=== PATIENT | male | born 1995 | race Asian ===

== ENCOUNTER 2018-11-23 12:15 | Observation (INO) ==
[2018-11-23] MEDS ORDERED: SODIUM CHLORIDE 0.9% 1000ML 1,000 ML IV SCH (12:45)
[2018-11-23 12:51] LABS: Basophils # (auto) 0.03 K/uL (0-0.2); Basophils % (auto) 0.5 %; Eosinophils # (auto) 0.05 K/uL (0-0.5); Eosinophils % (auto) 0.8 %; Hematocrit (blood only) 44.2 % (42-52); Hemoglobin 15.3 g/dL (14.0-18.0); Immature Granulocytes # (auto) 0.02 K/uL (0.00-0.02); Immature Granulocytes % (auto) 0.3 %; Lymphocytes # (auto) 2.36 K/uL (1.2-3.4); Lymphocytes % (auto) 35.6 %; Mean Corpuscular Hgb Conc 34.6 g/dL (32-36); Mean Corpuscular Volume 91.7 fL (80-100); Mean Platelet Volume 10.8 fL (7.4-10.4); Monocytes # (auto) 0.43 K/uL (0.11-0.59); Monocytes % (auto) 6.5 %; Neutrophils # (auto) 3.73 K/uL (1.4-6.5); Neutrophils % (auto) 56.3 %; Platelet Count 207 K/uL (130-400); RDW Coefficient of Variation 13.3 % (11.5-14.5); RDW Standard Deviation 44.1 fL (36.4-46.3); Red Blood Count 4.82 M/uL (4.7-6.1); White Blood Count 6.62 K/uL (4.8-10.8)
[2018-11-23 13:01] LABS: Albumin Level 4.3 gm/dl (3.4-5.0); BUN Creatinine Ratio 13.9 (10-20); Calcium 9.1 mg/dl (8.5-10.1); Creatinine Clr Calc Pharmacy 93.2 ml/min; Est GFR (African American) 78.7; Est GFR (Non-African American) 67.9; Magnesium 2.1 mg/dl (1.8-2.4)
[2018-11-23 13:04] LABS: Albumin Globulin Ratio 1.2 (0.9-2); Bilirubin,Total 0.5 mg/dl (0.2-1); Globulin 3.5 gm/dl (2.5-4.0); Total Protein 7.8 gm/dl (6.4-8.2)
[2018-11-23 13:18] LABS: Appearance Urine Clear (Clear); Bacteria Urine Automated Negative (Negative); Bilirubin Urine Negative (Negative); Blood Urine Negative (Negative); Color Urine Yellow; Epithelial Cell Urine Auto 20-30 /lpf (0-5); Glucose Urine UA Negative (Negative); Ketones Urine Negative (Negative); Leukocyte Esterase Urine Negative (Negative); Nitrite Urine Negative (Negative); Protein Urine 1+ (Negative); RBC Urine Automated 0-4 /hpf (0-4); Specific Gravity Urine 1.022 (1.000-1.030); Urobilinogen Urine Negative (Negative)
--- NOTE | 2018-11-23 13:22 | CT Scan Report ---
CT SCAN OF THE BRAIN WITHOUT IV CONTRAST CLINICAL HISTORY: Seizure. COMPARISON STUDY: No priors. TECHNIQUE: Unenhanced axial CT scan of the brain is performed from the vertex to the skull base. A d ose lowering technique was utilized adhering to the principles of ALARA. CT DOSE: 614.27 mGy.cm FINDINGS: Brain parenchyma: The brain parenchyma is normal in appearance. There is no hemorrhage, mass effect, or evidence of acute territorial ischemia by CT criteria. Walters-white matter differentiation is preser idris. No extra-axial fluid collection is seen. Ventricles, sulci, cisterns: Normal in configuration. Intracranial vasculature: The visualized intracranial vasculature at the skull base is normal in appe arance. Calvarium: Unremarkable. Sinuses and mastoids: The visualized paranasal sinuses are clear. The mastoid air cells are well pneu matized. Orbits: The bony orbits are grossly intact. IMPRESSION: No acute intracranial abnormality. Electronically signed by: Tomy Wheeler M.D. 11/23/2018 1:21 PM
[2018-11-23 13:30] LABS: Sperm Urine Present (None Prsent)
[2018-11-23 13:31] LABS: Mucus Urine Present (None Prsent)
[2018-11-23 13:46] LABS: Amphetamines+Metham, Urine Neg (Neg); Barbiturates, Urine Neg (Neg); Benzodiazepine, Urine Neg (Neg); Cocaine, Urine Neg (Neg); MDMA (Ecstacy), Urine Neg (Neg); Methadone, Urine Neg (Neg); Opiate, Urine Neg (Neg); Phencyclidine, Urine Neg (Neg)
[2018-11-23] MEDS ORDERED: levETIRAcetam 500 MG TAB PO ONE (14:31)
[2018-11-23] MEDS ORDERED: LORazepam 2 MG/4 ML VIAL ONE (14:34)
[2018-11-23] MEDS ORDERED: LORazepam 2 MG/4 ML VIAL IV STA (14:37)
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
[2018-11-23] MEDS ORDERED: ACETAMINOPHEN 325 MG TAB PO PRN (16:24)
[2018-11-23] MEDS ORDERED: ONDANSETRON INJ 2 MG/ML 2 ML VIAL IV PRN (16:24)
[2018-11-23] MEDS ORDERED: LORazepam 1 MG/2 ML VIAL IV PRN (16:24)
--- NOTE | 2018-11-23 17:07 | Emergency Department Note ---
Entered by Virgie Garduno acting as a scribe for History of Present Illness General Chief complaint: Seizure Stated complaint: seizure Time Seen by Provider: 11/23/18 12:27 Source: patient and friends History of Present Illness Onset (ago): hour(s) (this morning) Location: head, upper extremity and lower extremity Pain Consistency: + other (4 minutes ) Quality: + other (seizure) Associated symptoms: + other (Positive confusion, dribbling spit from his mouth. Negative vomiting. ) The patient is a 23 year old male who presents to the Emergency Room with complaints of a seizure beginning this morning. The patient is accompanied by his friend who states that this morning, they were going to get groceries when the patient began seizing. His friend notes the patient's seizure lasted about 4 minutes and he had spit dribbling from his mouth but he did not vomit. His friend states the patient was confused after seizing and when EMS arrived, the patient was feeling slightly better. The patient states his last seizure was 8 years ago and he had multiple at that time. He states he was on a seizure medication around that time but his father who is a physician discontinued it. Pt denies drinking alcohol, smoking marijuana, smoking cigarettes, smoking and e cigarette. The patient reports he has been drinking 2 Monster energy drinks for the past week and worked out yesterday. Home Medications Home Medications Medication Instructions Recorded Confirmed Type No Known Home Medications 11/23/18 11/23/18 History Allergies Allergy/AdvReac Type Severity Reaction Status Date / Time No Known Allergies Allergy Unverified 11/23/18 13:25 Past Med/Surg History Medical History Seizure (Acute) Surgical History No significant past surgical history Family History Other Family history non-contributory Social History Preferred Language: British Communication Ability: Effective Research Intern Required: No Beliefs That Will Affect Care: None Current Living Situation: Other Current Living Situation Comment: Apartment with friend current occupational status: student Other Information That Helps Us Care for You: No Feels Safe at Home: Yes Safety Concerns: Feels Safe At This Time Smoking Status: Never smoker Do You Dip or Chew Tobacco: No Second Hand Exposure: No Tobacco Cessation Education Requested by Patient: No Hx Alcohol Use: No Hx Substance Use: No Review of Systems See HPI for pertinent positives & negatives. and A total of 10 systems reviewed and were otherwise negative Physical Exam Vital Signs Vital Signs - 24 hr 11/23/18 12:11 11/23/18 12:22 11/23/18 12:26 Temperature 37.1 C Temperature Source Oral Sepsis Recent Fever Within 48 Hours No Sepsis New/Unexplained Change in Mental Status No Sepsis Action Taken by Nursing No Action Required Pulse Rate 77 69 68 Pulse Rate [Finger] Pulse Rate from SpO2 Sensor 70 69 Respiratory Rate 18 20 12 Respiratory Effort / Characteristics Non-Labored Spontaneous Respiratory Depth Normal Respiratory Pattern Regular Blood Pressure 116/52 L 116/52 L Blood Pressure [Right Arm] Blood Pressure Mean 73 73 Blood Pressure Mean [Right Arm] Blood Pressure Position Sitting Blood Pressure Position [Right Arm] Pulse Oximetry 97 96 96 Oxygen Delivery Method Room Air 11/23/18 12:30 11/23/18 12:40 11/23/18 12:50 Temperature Temperature Source Sepsis Recent Fever Within 48 Hours Sepsis New/Unexplained Change in Mental Status Sepsis Action Taken by Nursing Pulse Rate 71 73 66 Pulse Rate [Finger] Pulse Rate from SpO2 Sensor 70 75 67 Respiratory Rate 16 9 L 14 Respiratory Effort / Characteristics Respiratory Depth Respiratory Pattern Blood Pressure Blood Pressure [Right Arm] Blood Pressure Mean Blood Pressure Mean [Right Arm] Blood Pressure Position Blood Pressure Position [Right Arm] Pulse Oximetry 96 97 97 Oxygen Delivery Method 11/23/18 13:00 11/23/18 13:19 11/23/18 13:20 Temperature Temperature Source Sepsis Recent Fever Within 48 Hours Sepsis New/Unexplained Change in Mental Status Sepsis Action Taken by Nursing Pulse Rate 87 Pulse Rate [Finger] Pulse Rate from SpO2 Sensor 82 64 65 Respiratory Rate 24 Respiratory Effort / Characteristics Respiratory Depth Respiratory Pattern Blood Pressure Blood Pressure [Right Arm] Blood Pressure Mean Blood Pressure Mean [Right Arm] Blood Pressure Position Blood Pressure Position [Right Arm] Pulse Oximetry 97 98 98 Oxygen Delivery Method 11/23/18 13:30 11/23/18 13:40 11/23/18 13:50 Temperature Temperature Source Sepsis Recent Fever Within 48 Hours Sepsis New/Unexplained Change in Mental Status Sepsis Action Taken by Nursing Pulse Rate 64 64 62 Pulse Rate [Finger] Pulse Rate from SpO2 Sensor 63 65 62 Respiratory Rate 21 19 20 Respiratory Effort / Characteristics Respiratory Depth Respiratory Pattern Blood Pressure Blood Pressure [Right Arm] Blood Pressure Mean Blood Pressure Mean [Right Arm] Blood Pressure Position Blood Pressure Position [Right Arm] Pulse Oximetry 99 98 97 Oxygen Delivery Method 11/23/18 14:00 11/23/18 14:10 11/23/18 14:20 Temperature Temperature Source Sepsis Recent Fever Within 48 Hours Sepsis New/Unexplained Change in Mental Status Sepsis Action Taken by Nursing Pulse Rate 58 L 52 L 52 L Pulse Rate [Finger] Pulse Rate from SpO2 Sensor 58 L 51 L 51 L Respiratory Rate 15 18 17 Respiratory Effort / Characteristics Respiratory Depth Respiratory Pattern Blood Pressure Blood Pressure [Right Arm] Blood Pressure Mean Blood Pressure Mean [Right Arm] Blood Pressure Position Blood Pressure Position [Right Arm] Pulse Oximetry 97 96 96 Oxygen Delivery Method 11/23/18 14:30 11/23/18 14:40 11/23/18 14:50 Temperature Temperature Source Sepsis Recent Fever Within 48 Hours Sepsis New/Unexplained Change in Mental Status Sepsis Action Taken by Nursing Pulse Rate 51 L 98 H 95 H Pulse Rate [Finger] Pulse Rate from SpO2 Sensor 51 L 94 H Respiratory Rate 10 L 18 18 Respiratory Effort / Characteristics Respiratory Depth Respiratory Pattern Blood Pressure Blood Pressure [Right Arm] Blood Pressure Mean Blood Pressure Mean [Right Arm] Blood Pressure Position Blood Pressure Position [Right Arm] Pulse Oximetry 96 97 Oxygen Delivery Method 11/23/18 14:51 11/23/18 14:52 11/23/18 15:00 Temperature Temperature Source Sepsis Recent Fever Within 48 Hours Sepsis New/Unexplained Change in Mental Status Sepsis Action Taken by Nursing Pulse Rate 92 H 94 H 87 Pulse Rate [Finger] Pulse Rate from SpO2 Sensor 92 H 93 H 87 Respiratory Rate 20 15 17 Respiratory Effort / Characteristics Respiratory Depth Respiratory Pattern Blood Pressure 115/53 L Blood Pressure [Right Arm] Blood Pressure Mean 73 Blood Pressure Mean [Right Arm] Blood Pressure Position Blood Pressure Position [Right Arm] Pulse Oximetry 97 97 98 Oxygen Delivery Method 11/23/18 15:10 11/23/18 15:20 11/23/18 15:30 Temperature Temperature Source Sepsis Recent Fever Within 48 Hours Sepsis New/Unexplained Change in Mental Status Sepsis Action Taken by Nursing Pulse Rate 81 80 75 Pulse Rate [Finger] Pulse Rate from SpO2 Sensor 81 77 74 Respiratory Rate 10 L 10 L 4 L Respiratory Effort / Characteristics Respiratory Depth Respiratory Pattern Blood Pressure Blood Pressure [Right Arm] Blood Pressure Mean Blood Pressure Mean [Right Arm] Blood Pressure Position Blood Pressure Position [Right Arm] Pulse Oximetry 98 98 Oxygen Delivery Method 11/23/18 15:31 11/23/18 15:40 11/23/18 15:50 Temperature Temperature Source Sepsis Recent Fever Within 48 Hours Sepsis New/Unexplained Change in Mental Status Sepsis Action Taken by Nursing Pulse Rate 73 72 71 Pulse Rate [Finger] Pulse Rate from SpO2 Sensor 74 71 72 Respiratory Rate 8 L 20 19 Respiratory Effort / Characteristics Respiratory Depth Respiratory Pattern Blood Pressure 91/39 L Blood Pressure [Right Arm] Blood Pressure Mean 56 Blood Pressure Mean [Right Arm] Blood Pressure Position Blood Pressure Position [Right Arm] Pulse Oximetry 99 100 100 Oxygen Delivery Method 11/23/18 16:22 Temperature 36.1 C L Temperature Source Axillary Sepsis Recent Fever Within 48 Hours Sepsis New/Unexplained Change in Mental Status Sepsis Action Taken by Nursing Pulse Rate Pulse Rate [Finger] 86 Pulse Rate from SpO2 Sensor Respiratory Rate 20 Respiratory Effort / Characteristics Respiratory Depth Respiratory Pattern Blood Pressure Blood Pressure [Right Arm] 95/81 L Blood Pressure Mean Blood Pressure Mean [Right Arm] 85 Blood Pressure Position Blood Pressure Position [Right Arm] Lying Pulse Oximetry 98 Oxygen Delivery Method Vital signs reviewed. General: Well-appearing male, in no significant distress. HEENT: No scleral icterus, PERRLA, neck supple. Atraumatic. Cardiovascular: Regular rate and rhythm, no extra sounds. Pulmonary: Clear to auscultation bilaterally, normal work of breathing. Abdomen: Soft, nontender, nondistended, positive bowel sounds. Musculoskeletal: Atraumatic, no peripheral edema. Neurologic: Patient awake alert and oriented x 3, full strength in all 4 extremities. Cranial nerves 2 through 12 grossly intact. Skin: Warm, dry, no rash Course 1230: Past medical records reviewed. The patient was evaluated in room C11. A complete history and physical examination was performed. 1429: I discussed the patient's case with Dr. Vaughn, Neurology. She recommends Kepra. 1435: I discussed the patient's case with Dr. Loredo, [facility] Hospitalist. He will evaluate the patient for further management. Administered Medications Levetiracetam 500 mg/ Dextrose 105 mls @ 420 mls/hr IV Q12H DENNIS Stop: 12/23/18 20:59 Last Admin: 11/23/18 20:46 Dose: 420 mls/hr Documented by: [id number] Sodium Chloride (Nss 1000ml) 1,000 mls @ 125 mls/hr IV .Q8H DENNIS Stop: 12/23/18 16:44 Last Admin: 11/23/18 17:32 Dose: 125 mls/hr Documented by: [id number] Discontinued Medications Sodium Chloride (Nss 1000ml) 1,000 mls @ 999 mls/hr IV .Q1H1M DENNIS Stop: 11/23/18 13:45 Last Infusion: 11/23/18 14:49 Dose: 0 mls/hr Documented by: [id number] Admin: 11/23/18 13:06 Dose: 999 mls/hr Documented by: [id number] Levetiracetam 1,000 mg/ (Dextrose) 110 mls @ 440 mls/hr IV NOW STA Stop: 11/23/18 14:49 Last Infusion: 11/23/18 15:06 Dose: 0 mls/hr Documented by: [id number] Admin: 11/23/18 14:48 Dose: 440 mls/hr Documented by: [id number] Lorazepam (Ativan) 2 mg in 4 mls @ 4 mls/min IV NOW STA Stop: 11/23/18 14:38 Last Admin: 11/23/18 14:47 Dose: 4 mls/min Documented by: [id number] Levetiracetam 1,000 mg/ (Dextrose) 110 mls @ 440 mls/hr IV NOW STA Stop: 11/23/18 14:50 Last Admin: 11/23/18 14:49 Dose: Not Given Documented by: [id number] Levetiracetam (Keppra) 500 mg PO ONE ONE Stop: 11/23/18 14:32 Last Admin: 11/23/18 16:27 Dose: Not Given Documented by: [id number] Lorazepam (Ativan) Confirm Administered Dose 2 mg .ROUTE .STK-MED ONE Stop: 11/23/18 14:35 Last Admin: 11/23/18 14:48 Dose: Not Given Documented by: [id number] Medical Decision Making Differential Diagnosis Differential diagnosis includes etiologies such as infection, hypoglycemia, electrolyte abnormalities, cardiac sources, intracerebral event, trauma, toxicologic, neurologic, as well as others were entertained. Medical Records Attestation: I reviewed the patient's medical records. Home Medications Current Medication List: was personally reviewed by me Laboratory Data Attestation: I reviewed the patient's lab results. Result diagrams: 11/23/18 12:20 11/23/18 12:20 Lab Results 11/23/18 11/23/18 11/23/18 Range/Units 12:20 12:20 12:56 WBC 6.62 (4.8-10.8) K/uL RBC 4.82 (4.7-6.1) M/uL Hgb 15.3 (14.0-18.0) g/dL Hct 44.2 (42-52) % MCV 91.7 (80-100) fL MCH 31.7 (25-34) pg MCHC 34.6 (32-36) g/dL RDW Std Deviation 44.1 (36.4-46.3) fL RDW Coeff of Opal 13.3 (11.5-14.5) % Plt Count 207 (130-400) K/uL MPV 10.8 H (7.4-10.4) fL Immature Gran % (Auto) 0.3 % Neut % (Auto) 56.3 % Lymph % (Auto) 35.6 % Shasta % (Auto) 6.5 % Eos % (Auto) 0.8 % Baso % (Auto) 0.5 % Immature Gran # (Auto) 0.02 (0.00-0.02) K/uL Neut # (Auto) 3.73 (1.4-6.5) K/uL Lymph # (Auto) 2.36 (1.2-3.4) K/uL Shasta # (Auto) 0.43 (0.11-0.59) K/uL Eos # (Auto) 0.05 (0-0.5) K/uL Baso # (Auto) 0.03 (0-0.2) K/uL Sodium 138 (136-145) mmol/L Potassium 4.0 (3.5-5.1) mmol/L Chloride 103 (98-107) mmol/L Carbon Dioxide 21 (21-32) mmol/L Anion Gap 14.0 H (3-11) BUN 20 H (7-18) mg/dl Creatinine 1.45 H (0.6-1.4) mg/dl Est Cr Clr Drug Dosing 93.2 ml/min Est GFR ( Amer) 78.7 Est GFR (Non-Af Amer) 67.9 BUN/Creatinine Ratio 13.9 (10-20) Glucose 80 (70-99) mg/dl POC Glucose (70-99) Lactate 2.7 H* (0.4-2.0) mmol/L Calcium 9.1 (8.5-10.1) mg/dl Phosphorus 4.0 (2.5-4.9) mg/dl Magnesium 2.1 (1.8-2.4) mg/dl Total Bilirubin 0.5 (0.2-1) mg/dl AST 28 (15-37) U/L ALT 38 (12-78) U/L Alkaline Phosphatase 87 (45-117) U/L Total Protein 7.8 (6.4-8.2) gm/dl Albumin 4.3 (3.4-5.0) gm/dl Globulin 3.5 (2.5-4.0) gm/dl Albumin/Globulin Ratio 1.2 (0.9-2) Urine Color Urine Appearance (Clear) Urine pH (4.5-7.5) Ur Specific Ulman (1.000-1.030) Urine Protein (Negative) Urine Glucose (UA) (Negative) Urine Ketones (Negative) Urine Blood (Negative) Urine Nitrite (Negative) Urine Bilirubin (Negative) Urine Urobilinogen (Negative) Ur Leukocyte Esterase (Negative) Urine WBC (Auto) (0-5) /hpf Urine RBC (Auto) (0-4) /hpf U Hyaline Cast (Auto) (0-5) /lpf U Epithel Cells (Auto) (0-5) /lpf Urine Bacteria (Auto) (Negative) Urine Mucus (None Prsent) Urine Sperm (None Prsent) Urine Opiates Screen (Neg) Ur Methadone, Qual (Neg) Urine Barbiturates (Neg) Ur Phencyclidine (PCP) (Neg) U Amphetamin/Meth Scrn (Neg) MDMA (Ecstasy) Screen (Neg) U Benzodiazepines Scrn (Neg) Ur Cocaine Metabolite (Neg) U Marijuana (THC) Screen (Neg) 11/23/18 11/23/18 11/23/18 Range/Units 12:57 13:00 13:00 WBC (4.8-10.8) K/uL RBC (4.7-6.1) M/uL Hgb (14.0-18.0) g/dL Hct (42-52) % MCV (80-100) fL MCH (25-34) pg MCHC (32-36) g/dL RDW Std Deviation (36.4-46.3) fL RDW Coeff of Opal (11.5-14.5) % Plt Count (130-400) K/uL MPV (7.4-10.4) fL Immature Gran % (Auto) % Neut % (Auto) % Lymph % (Auto) % Shasta % (Auto) % Eos % (Auto) % Baso % (Auto) % Immature Gran # (Auto) (0.00-0.02) K/uL Neut # (Auto) (1.4-6.5) K/uL Lymph # (Auto) (1.2-3.4) K/uL Shasta # (Auto) (0.11-0.59) K/uL Eos # (Auto) (0-0.5) K/uL Baso # (Auto) (0-0.2) K/uL Sodium (136-145) mmol/L Potassium (3.5-5.1) mmol/L Chloride (98-107) mmol/L Carbon Dioxide (21-32) mmol/L Anion Gap (3-11) BUN (7-18) mg/dl Creatinine (0.6-1.4) mg/dl Est Cr Clr Drug Dosing ml/min Est GFR ( Amer) Est GFR (Non-Af Amer) BUN/Creatinine Ratio (10-20) Glucose (70-99) mg/dl POC Glucose 91 (70-99) Lactate (0.4-2.0) mmol/L Calcium (8.5-10.1) mg/dl Phosphorus (2.5-4.9) mg/dl Magnesium (1.8-2.4) mg/dl Total Bilirubin (0.2-1) mg/dl AST (15-37) U/L ALT (12-78) U/L Alkaline Phosphatase (45-117) U/L Total Protein (6.4-8.2) gm/dl Albumin (3.4-5.0) gm/dl Globulin (2.5-4.0) gm/dl Albumin/Globulin Ratio (0.9-2) Urine Color Yellow Urine Appearance Clear (Clear) Urine pH 6.0 (4.5-7.5) Ur Specific Ulman 1.022 (1.000-1.030) Urine Protein 1+ H (Negative) Urine Glucose (UA) Negative (Negative) Urine Ketones Negative (Negative) Urine Blood Negative (Negative) Urine Nitrite Negative (Negative) Urine Bilirubin Negative (Negative) Urine Urobilinogen Negative (Negative) Ur Leukocyte Esterase Negative (Negative) Urine WBC (Auto) 5-10 H (0-5) /hpf Urine RBC (Auto) 0-4 (0-4) /hpf U Hyaline Cast (Auto) 1-5 (0-5) /lpf U Epithel Cells (Auto) 20-30 H (0-5) /lpf Urine Bacteria (Auto) Negative (Negative) Urine Mucus Present A (None Prsent) Urine Sperm Present A (None Prsent) Urine Opiates Screen Neg (Neg) Ur Methadone, Qual Neg (Neg) Urine Barbiturates Neg (Neg) Ur Phencyclidine (PCP) Neg (Neg) U Amphetamin/Meth Scrn Neg (Neg) MDMA (Ecstasy) Screen Neg (Neg) U Benzodiazepines Scrn Neg (Neg) Ur Cocaine Metabolite Neg (Neg) U Marijuana (THC) Screen Neg (Neg) Imaging Data Radiologist's Impression: Radiology results as stated below per my review and the radiologist's interpretation: CT SCAN OF THE BRAIN WITHOUT IV CONTRAST CLINICAL HISTORY: Seizure. COMPARISON STUDY: No priors. TECHNIQUE: Unenhanced axial CT scan of the brain is performed from the vertex to the skull base. A dose lowering technique was utilized adhering to the principles of ALARA. CT DOSE: 614.27 mGy.cm FINDINGS: Brain parenchyma: The brain parenchyma is normal in appearance. There is no hemorrhage, mass effect, or evidence of acute territorial ischemia by CT criteria. Walters-white matter differentiation is preserved. No extra-axial fluid collection is seen. Ventricles, sulci, cisterns: Normal in configuration. Intracranial vasculature: The visualized intracranial vasculature at the skull base is normal in appearance. Calvarium: Unremarkable. Sinuses and mastoids: The visualized paranasal sinuses are clear. The mastoid air cells are well pneumatized. Orbits: The bony orbits are grossly intact. IMPRESSION: No acute intracranial abnormality. Electronically signed by: Tomy Wheeler M.D. 11/23/2018 1:21 PM ECG Data Attestation: I personally reviewed and interpreted this ECG as follows: Indication: other (seizure) Rate (beats per minute): 65 Rhythm: normal sinus Findings: + other (J point elevation diffusely); no acute ischemic change and no ectopy Blood Pressure Blood Pressure Findings: Low blood pressure Blood Pressure Disposition: further management by hospitalist MDM Narrative This patient was evaluated and appeared to be in no significant distress. IV access was obtained and laboratory work was drawn. The patient was placed on the cardiac cath lab technologist with seizure precautions maintained. Patient seem to mini shahla the symptoms, stating he was flying to [place] tomorrow. He has not had a seizure in many years and is antiepileptic medications in years also. Patient states he feels better since losing weight and working out and does not feel that he is at risk for seizures. CT scan of the head was performed and is negative for acute intracranial pathology. Laboratory work reveals an elevated lactate consistent with his postictal state. Patient is found to be slightly dehydrated with a creatinine of 1.45. Patient was discussed with Dr. Vaughn of neurology. She has recommended initiating Keppra. Shortly after that call the patient had a generalized tonic-clonic seizure and required 2 mg of IV Ativan and a nasopharyngeal airway. He was placed on nasal cannula oxygen and loaded with 1000 mg of IV Keppra. The patient's friend was at the bedside during the episode. He was unable to locate the patient's parents information in [place]. He will continue to work on this through friends. She will be evaluated by the hospitalist service, Dr. Loredo, who will evaluate the patient for further management. Impression & Plan Recurrent seizures Critical Care Time I have personally spent greater than 30 minutes of critical care time in the direct management of this patient. This includes bedside care, interpretation of diagnostic studies, and testing, discussion with consultants, patient, and family members, and other required patient management activities. This 30 minutes is in excess of all separately billable procedures. Critical Care Time: Yes (30) Total Critical Care Time: 30 Discharge Plan Visit Data *Final* Discharge Date/Time: 11/23/18 15:49 Chief Complaint: Seizure Stated Complaint: seizure ED Provider: Goldie Leavitt Discharge Problem: Recurrent seizures Patient Disposition: Admitted As Inpatient Discharge Instructions Interventions: ED Discharge Assessment Last Done: 11/23/18 15:49 The scribe's documentation has been prepared under my direction and personally reviewed by me in its entirety. I confirm that the note above accurately reflects all work, treatment, procedures, and medical decision making performed by me.
[2018-11-23] MEDS: SODIUM CHLORIDE 0.9% 1000ML 1,000 ML IV SCH ×2 (17:32→23:27)
--- NOTE | 2018-11-23 21:39 | Progress Note ---
Date of Service November 23, 2018 at 9:30 pm Received page from patient's nurse stating that patient wished to go [facility]. Brief chart review: He was admitted earlier this evening after two witnessed seizures. Saw patient at bedside: Patient says he has a history of a seizure disorder. He acknowledges his two previous seizures earlier today. He says that his father is a physician in [place]. Apparently after discussing his situation with his father, he wishes to return to [place] as soon as possible. He says he currently has a flight booked for tomorrow (SaturdayNovember 24) for early afternoon and needs to drive to [facility] airport as soon as possible. Exam: Awake, alert, calm, does not appear in any acute distress. Plan: - Discussed with the patient that per the notes the on-call neurologist recommended he be observed overnight. We discussed that it would be very dangerous for him to have another seizure either in the car on the way to the airport or on an intercontinental flight. Therefore goal is to try to prevent this if possible. - Patient seemed unaware that he received a dose of Keppra IV and that it may be currently preventing further seizures. He also was unaware of the idea that he may be sent home on antiepileptic medication. - For now, patient states he is willing to stay till the morning. We discussed that he can always contact his airline and possibly reschedule his flight to the following day because of these emergent medical concerns. Martin Bennett MD PGY2 overnight call Results & Data Vital Signs (Past 12 Hours) Vital Signs Temp Pulse Pulse Resp BP BP Pulse Ox 11/23/18 16:22 36.1 C L 86 20 95/81 L 98 11/23/18 15:50 71 19 100 11/23/18 15:40 72 20 100 11/23/18 15:31 73 8 L 91/39 L 99 11/23/18 15:30 75 4 L 11/23/18 15:20 80 10 L 98 11/23/18 15:10 81 10 L 98 11/23/18 15:00 87 17 98 11/23/18 14:52 94 H 15 97 11/23/18 14:51 92 H 20 115/53 L 97 11/23/18 14:50 95 H 18 97 11/23/18 14:40 98 H 18 11/23/18 14:30 51 L 10 L 96 11/23/18 14:20 52 L 17 96 11/23/18 14:10 52 L 18 96 11/23/18 14:00 58 L 15 97 11/23/18 13:50 62 20 97 11/23/18 13:40 64 19 98 11/23/18 13:30 64 21 99 11/23/18 13:20 98 11/23/18 13:19 98 11/23/18 13:00 87 24 97 11/23/18 12:50 66 14 97 11/23/18 12:40 73 9 L 97 11/23/18 12:30 71 16 96 11/23/18 12:26 68 12 96 11/23/18 12:22 69 20 116/52 L 96 11/23/18 12:11 37.1 C 77 18 116/52 L 97
[2018-11-24 07:10] VITALS: BP 94/51; PULSE 59; TEMP 98.2; O2SAT 99
[2018-11-24 07:22] LABS: BUN Creatinine Ratio 15.6 (10-20); Calcium 8.6 mg/dl (8.5-10.1); Creatinine Clr Calc Pharmacy 125.2 ml/min; Est GFR (African American) 112.3; Est GFR (Non-African American) 96.9; Potassium 4.1 mmol/L (3.5-5.1)
[2018-11-24] MEDS: SODIUM CHLORIDE 0.9% 1000ML 1,000 ML IV SCH (08:55)
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
== END 2018-11-24 11:34 | disposition home or self-care (01) ==
LOC: ED 12:15 → 4W 12:15 → SUATTDRO 15:23 → 4W 15:49
DX: G40.909 Epilepsy, unspecified, not intractable, without status epilepticus